=== PATIENT | female | born 1965 | race Caucasian/White ===

== ENCOUNTER 2018-03-20 06:41 | Day surgery (SDC) | END 2018-03-20 11:58 | disposition home or self-care (01) ==

== ENCOUNTER 2018-04-01 15:16 | Inpatient (IN) | END 2018-04-04 18:30 | disposition home or self-care (01) | DRG 863 ==

== ENCOUNTER 2018-08-12 12:24 | Day surgery (SDC) | payer OTHER ==
[~2018-08-12] VITALS: Ht 144.8 cm; Wt 51.3 kg
[~2018-08-12 12:24] MED LIST: DOCU-144 PO; SILV20CR12 TOP; SULF1TAB31 PO
[2018-08-12 14:15] VITALS: Ht 144.8 cm; Wt 51.3 kg
[2018-08-12 14:50] VITALS: BP 117/57; PULSE 63; RESP 14
--- NOTE | 2018-08-12 14:52 | PREAC ---
Date/Time of Note Date/Time of Note DATE: 08/12/18 TIME: 14:50 Anesthesia Eval and Record Evaluation Time Pre-Procedure Interview DATE: 08/12/18 TIME: 14:50 Age 53 Sex female NPO: 8 hrs Preoperative diagnosis Screening Planned procedure Colonoscopy Past Medical History Past Medical History: None Surgery & Anesthesia Issues No known issue Meds Anticoagulation: No Beta Rob within 24 hr: No Reason Beta Rob not given: Pt. not on B-Rob Discontinued Scripts Sulfamethoxazole/Trimethoprim* (Bactrim Ds* Tablet) 1 Each Tablet, 1 TAB PO BID, #20 TAB Prov:DAVID COLMENARES NP 04/04/18 Docusate Sodium* (Colace*) 100 Mg Capsule, 100 MG PO BID, #20 CAP Prov:DAVID COLMENARES NP 04/04/18 Silver Sulfadiazine* (Silvadene*) 1% - 20 Gm Cream.gm., 1 APPLIC TOP BID, #1 UNIT Prov:DAVID COLMENARES NP 04/04/18 Meds reviewed: Yes Allergies Coded Allergies: No Known Allergy (Unverified , 12/06/15) Allergies Reviewed: Yes Labs/Studies Labs Reviewed: Reviewed by anesthesiologist test: N/A (menopaused 2 yrs ago) Studies: ECG (n/a), CXR (n/a) Pre-procedure Exam Airway: Adequate mouth opening, Adequate thyromental dist Mallampati: Mallampati II Teeth: Normal Lung: Normal Heart: Normal ASA Physical Status ASA physical status: 1 Emergency: None Planned Anesthetic General/MAC: MAC Planned Pain Management Parenteral pain med Pre-operative Attestations Prior to commencing anesthesia and surgery, the patient was re-evaluated, there was verification of: *The patient's identity *The results of appropriate recent lab work and preoperative vital signs *The above evaluation not changing prior to induction *Anesthetic plan, risk benefits, alternative and complications discussed with patient/family; questions answered; patient/family understands, accepts and wishes to proceed. USHA BUTCHER MD Aug 12, 2018 14:52
--- NOTE | 2018-08-12 15:07 | PAC ---
Date/Time of Note Date/Time of Note DATE: 08/12/18 TIME: 15:07 Post-Anesthesia Notes Post-Anesthesia Note Last documented vital signs T:98.1 Activity: WNL Respiratory function: WNL Cardiovascular function: WNL Mental status: Baseline Pain reasonably controlled: Yes Hydration appropriate: Yes Nausea/Vomiting absent: Yes USHA BUTCHER MD Aug 12, 2018 15:07
[2018-08-12] MEDS ORDERED: PROPOFOL 40 ML ONE (15:08)
[2018-08-12 15:38] VITALS: BP 124/70; PULSE 60; RESP 18
== END 2018-08-12 16:39 | disposition home or self-care (01) ==
LOC: GIL 12:24
PROVIDERS: ATTEND Internal Medicine Gastroenterology
DX: Z12.11 Encounter for screening for malignant neoplasm of colon (principal); K64.8 Other hemorrhoids
CPT/HCPCS: 45378; Z7610